=== PATIENT | male | born 1990 | race Caucasian/White ===

== ENCOUNTER 2020-10-25 11:56 | Emergency (ER) | payer OTHER ==
[2020-10-25 13:29] LABS: RED BLOOD COUNT 5.16 M/UL (4.20-5.50); WHITE BLOOD COUNT 15.5 K/UL (4.5-11.0)
[2020-10-25 13:48] LABS: BUN/CREATININE RATIO 19 (0-10)
[2020-10-25] MEDS ORDERED: ENDOCET 5-3251 EACH PO (19:44)
[2020-10-25] MEDS ORDERED: ZOFRAN ODT 4 MG4 MG SL (19:44)
== END 2020-10-25 19:57 | disposition home or self-care (01) ==
LOC: ER1 11:56
PROVIDERS: Physician Assistant
DX: N13.2 Hydronephrosis with renal and ureteral calculous obstruction (principal)
CPT/HCPCS: 80053; 81001; 83690; 85025; 96374; 99284; J1885

== ENCOUNTER 2020-10-28 22:03 | Emergency (ER) | payer OTHER ==
[~2020-10-28 22:03] MED LIST: ENDOCET 5-3251 EACH PO; ZOFRAN ODT 4 MG4 MG SL
[2020-10-29] MEDS ORDERED: FLOMAX0.4 MG PO (00:06)
[2020-10-29] MEDS ORDERED: HYDROCODON-ACE1 EAC4 PO (00:09)
== END 2020-10-29 00:52 | disposition home or self-care (01) ==
LOC: ER1 22:03
DX: N20.1 Calculus of ureter (principal); F17.200 Nicotine dependence, unspecified, uncomplicated; Z87.442 Personal history of urinary calculi
CPT/HCPCS: 99283